=== PATIENT | female | born 2000 | race Caucasian/White ===

== ENCOUNTER 2019-03-25 18:19 | Emergency (ER) | payer OTHER ==
--- OUTSIDE RECORDS SUMMARY | 2019-03-25 18:28 | XMS REPORT | Continuity of Care Document ---
:2000 External Reference #:[id number] Author Name Cristela Peoples NP (transmitted by agent of provider Beto Haynes) Address [address] [place] [address] Problems Active Problems Provider Date Uncomplicated moderate persistent asthma Beto Haynes MD Onset: Allergic rhinitis Beto Haynes MD Onset: 01/04/2019 Allergic rhinitis due to pollen Beto Haynes MD Onset: 01/04/2019 Social History Type Date Description Comments Sex Unknown Tobacco Use Start: Unknown Patient has never smoked She quit vaping one month ago. Smoking Status Reviewed: 01/04/19 Patient has never smoked She quit vaping one month ago. Allergies, Adverse Reactions, Alerts Description No Known Drug Allergies Medications Active Medications SIG Qnty Indications Ordering Provider Date Flonase Allergy 2 puffs each 9.900ml J30.1 Beto Anderson 01/04/2019 Relief nostril every MD [place] 50mcg/Act day Suspension Xyzal 1 tab by mouth 30tabs J30.1 Beto ASabine 01/04/2019 5mg Tablets every day as MD [place] needed Proair HFA 2 puffs every 4 25.5gm J30.1 Beto A. 01/04/2019 as needed MD [place] 108(90Base) mcg/Act Aerosol Breo Ellipta inhale one puff 60units Beto Anderson once a day MD [place] 200-25mcg/Inh Aerosol Methotrexate 15 MG Once Unknown 2.5mg Weekly Tablets Simponi Once Monthly Unknown 50mg/0.5ML Solution Auto-Inject Latuda Unknown 20mg Tablets History Medications Prednisone take 3 tablets by 18tabs Beto Anderson 01/04/2019 - 10mg mouth twice a day MD [place] 02/01/2019 Tablets for 3 days. take with food. Immunizations Description No Information Available Vital Signs Date Vital Result Comment 02/01/2019 1:02pm BP Systolic 118 mmHg BP Diastolic 72 mmHg Height 64 inches 5'4" Weight 127.00 lb BMI (Body Mass Index) 21.8 kg/m2 Heart Rate 100 /min Respiratory Rate 16 /min Body Temperature 97.6 F O2 % BldC Oximetry 98 % 01/04/2019 11:04am BP Systolic 137 mmHg BP Diastolic 85 mmHg Height 64 inches 5'4" Weight 127.00 lb BMI (Body Mass Index) 21.8 kg/m2 Heart Rate 85 /min O2 % BldC Oximetry 98 % Results Description No Information Available Procedures Date Code Description Status 01/04/2019 52317 Allergy Tests Intradermal W/ Allergenic Extr Immediate Completed Reaction 01/04/2019 68742 Nitric Oxide Gas Determination Completed 01/04/2019 01913 Allergy Tests Percutaneous W/ Allergenic Extracts Completed 01/04/2019 46425 Bronchodilation Responsiveness Spirometry Pre/Post Completed Bronchodil Adm Medical Devices Description No Information Available Encounters Type Date Location Provider Dx Diagnosis Office Visit 02/01/2019 Jacky Peoples NP J45.40 Moderate persistent 1:00p asthma, uncomplicated J30.1 Allergic rhinitis due to pollen Office Visit 01/04/2019 11:00a Jacky Haynes J30.1 Allergic rhinitis MD due to pollen J30.89 Other allergic rhinitis J45.40 Moderate persistent asthma, uncomplicated Assessments Date Code Description Provider 02/01/2019 J45.40 Moderate persistent asthma, uncomplicated Cristela Peoples NP 02/01/2019 J30.1 Allergic rhinitis due to pollen Cristela Peoples NP 01/04/2019 J30.1 Allergic rhinitis due to pollen Beto Haynes MD 01/04/2019 J30.89 Other allergic rhinitis Beto Haynes MD 01/04/2019 J45.40 Moderate persistent asthma, uncomplicated Beto Haynes MD Plan of Treatment 02/01/2019 - Cristela Peoples NPJ45.40 Moderate persistent asthma, uncomplicatedComments:Discussion of skin environmental testing performed. All positives were discussed however most highly reactive to white birch, box elder , standard Bermuda, brome, standard sweet vernal, standard Jennifer, and std perennial rye, dust mites, cockroach. Avoidance reviewed; Bedroom hygiene. Mattress and dust mite covers. Hepa filter, air conditioner, and air purifier discussed.Medications were reviewed currently very effective.Immunotherapy discussed patient would like to start immunotherapy when she returns from [facility].She will call when she returns from [facility] and schedule her appointment.J30.1 Allergic rhinitis due to pollen Functional Status Description No Information Available Mental Status Description No Information Available Referrals Description No Information Available
[2019-03-25 18:37] VITALS: BP 116/76
--- NOTE | 2019-03-25 19:14 | UC ---
Skin Complaint HPI - HPI Summary HPI Summary: The patient is a 18-year-old female with the onset of a painful and growing subcutaneous nodule on her left bhatti. She also has 3 or 4 developing on her right bhatti. She has a history of rheumatoid arthritis since the age of 14 is on methotrexate. She is flying back home tomorrow and will make her age is to follow-up with her floor director. She has had no recent sore throat. She is on oral control pills. - History of Current Complaint Chief Complaint: UCLowerExtremity Stated Complaint: LEFT LEG PAIN Hx Obtained From: Patient Hx Last Menstrual Period: Onset/Duration: Gradual Onset, Lasting Hours Timing: Constant Onset Severity: Mild Current Severity: Moderate Pain Intensity: 7 Pain Scale Used: 0-10 Numeric Location: Diffuse Character: Swelling, Redness, Raised, Painful Aggravating Factor(s): Touch Alleviating Factor(s): Nothing Associated Signs & Symptoms: Positive: Tenderness - Allergy/Home Medications Allergies/Adverse Reactions: Allergies Allergy/AdvReac Type Severity Reaction Status Date / Time No Known Allergies Allergy Verified 03/25/19 18:37 Home Medications: Home Medications Albuterol HFA INHALER* [Ventolin HFA Inhaler*] 2 puff INH Q4H PRN 03/25/19 [ History Confirmed 03/25/19] Control 1 mg PO DAILY WITH MEAL 03/25/19 [History Confirmed 03/25/19] Fluticasone NASAL SPRAY 50MCG* [Flonase NASAL SPRAY 50MCG*] 2 spray BOTH NARES DAILY 03/25/19 [History Confirmed 03/25/19] Fluticasone/Vilanterol MDI(NF) [Breo Ellipta MDI (NF)] 1 puff INH DAILY [History Confirmed 03/25/19] Golimumab [Simponi] 50 mg SC MONTHLY 03/25/19 [History Confirmed 03/25/19] LevoCETirizine TAB (NF) [Xyzal TAB (NF)] 5 mg PO DAILY 03/25/19 [History Confirmed 03/25/19] Methotrexate TAB* 2.5 mg PO Q7D 03/25/19 [History Confirmed 03/25/19] l-Norgest/E.estradiol-E.estrad [Seasonique 0.15-0.03-0.01 Tab] 03/25/19 [ History] lamoTRIgine [Lamotrigine] 150 mg PO DAILY WITH MEAL 03/25/19 [History Confirmed 03/25/19] PMH/Surg Hx/FS Hx/Imm Hx Previously Healthy: Yes - RA - Surgical History Surgical History: None - Family History Known Family History: Positive: Hypertension - Social History Alcohol Use: Weekly Substance Use Type: None Smoking Status (MU): Never Smoked Tobacco Review of Systems All Other Systems Reviewed And Are Negative: Yes Constitutional: Positive: Negative Skin: Positive: Rash Eyes: Positive: Negative ENT: Positive: Negative Respiratory: Positive: Negative Cardiovascular: Positive: Negative Gastrointestinal: Positive: Negative Genitourinary: Positive: Negative Motor: Positive: Negative Neurovascular: Positive: Negative Musculoskeletal: Positive: Negative Neurological: Positive: Negative Psychological: Positive: Negative Physical Exam Triage Information Reviewed: Yes Appearance: Well-Appearing, No Pain Distress, Well-Nourished Vital Signs: Initial Vital Signs Temp 98.9 F 03/25/19 18:31 Pulse 114 03/25/19 18:31 Resp 18 03/25/19 18:31 BP 116/76 03/25/19 18:31 Pulse Ox 100 03/25/19 18:31 Vital Signs Reviewed: Yes Eyes: Positive: Conjunctiva Clear ENT: Positive: Hearing grossly normal - is. Negative: Nasal congestion, Nasal drainage, Trismus, Muffled voice, Hoarse voice Dental Exam: Normal Neck: Positive: Supple, Nontender, No Lymphadenopathy Respiratory: Positive: Lungs clear, Normal breath sounds, No respiratory distress, No accessory muscle use Cardiovascular: Positive: RRR, No Murmur Neurological: Positive: Alert Psychological Exam: Normal Skin Exam: Other - painful subcutaneous nodules (large one left leg) and three smaller ones on right bhatti Course/Dx - Diagnoses Provider Diagnosis: Erythema nodosum Discharge ED - Sign-Out/Discharge Documenting (check all that apply): Patient Departure All imaging exams completed and their final reports reviewed: No Studies - Discharge Plan Condition: Stable Disposition: HOME Referrals: No Primary Care Phys,NOPCP [Primary Care Provider] - Additional Instructions: erythema nordosum (EN) I suspect you have eythema nordosum Since you are flying home the AM I suggest you get this evaluated and worked up back home Call your floor director tomorrow and make arrangements to get seen This could be due to arthritis as we see this with autoimmune problems but there are many other causes You may need to stop your control pills ibuprofen elevation - Billing Disposition and Condition Condition: STABLE Disposition: Home
== END 2019-03-25 19:20 | disposition home or self-care (01) ==
LOC: UCEAST 18:19
DX: L52 Erythema nodosum (principal); M06.9 Rheumatoid arthritis, unspecified; Z79.899 Other long term (current) drug therapy
CPT/HCPCS: 99211; G0463